=== PATIENT | male | born 1995 ===

== ENCOUNTER 2017-08-05 19:47 | Emergency (ER) | payer OTHER ==
[~2017-08-05] VITALS: Ht 180.3 cm; Wt 120.4 kg
[2017-08-05 19:50] VITALS: TEMP 37.2; Ht 180.3 cm; Wt 120.4 kg
[2017-08-05] MEDS ORDERED: LIDOCAINE/EPINEPHRINE 1% 20 ML VIAL INFIL ONE (20:30)
[2017-08-05] MEDS ORDERED: CEPHALEXIN MONOHYDRATE 250 MG CAP PO ONE (22:30)
[2017-08-05] MEDS ORDERED: SEPTRA DS HOME PACK 1 EA VIAL PO ONE (22:30)
[2017-08-05] MEDS ORDERED: CEPHALEXIN 500MG HOME PACK 1 EA BTL PO ONE (22:30)
[2017-08-05] MEDS ORDERED: SULFAMETHOXAZOLE/TRIMETHOPRIM DS 800/160MG TAB PO STA (22:30)
[2017-08-05] MEDS ORDERED: SULF800T23 PO (22:33)
[2017-08-05] MEDS ORDERED: CEPH500C PO (22:33)
--- NOTE | 2017-08-05 22:35 | EMERGENCY ROOM VISIT NOTE ---
ED Visit Note First contact with patient: 19:56 CHIEF COMPLAINT: Infection on the right buttock HISTORY OF PRESENT ILLNESS: This 22-year-old male patient presents to the emergency department with complaint of swollen bump on his right buttock that started 3 days ago. It is slowly getting larger, more painful and tender. No fever, chills, or loss of appetite. There has been no drainage from the area. There was no known injury to the area preceding the infection, the patient states that he first noticed the area after spending some time sitting in the grass, he is unsure if he had an insect bite. He denies any history of previous abscess or cellulitis infections. REVIEW OF SYSTEMS: The patient is not diabetic, and has no history of subcutaneous abscesses. Denies a history of heart disease or being unusually prone to infections. No fever, chills, vomiting, or diarrhea. PMH: The patient is healthy; there is no significant medical or surgical history. SOCIAL HISTORY: Patient lives at home. He is a [employer] student. He denies tobacco, alcohol, recreational drug use. PHYSICAL EXAM: Vital Signs: Reviewed Nurse's notes. Patient is alert, oriented 4, in no acute distress and nontoxic appearing. He appears well-hydrated. There is an indurated area in the gluteal fold along the right medial buttock. Does not track into the gluteal crease or toward the anus. The indurated area measures about 15 cm in diameter. It is fluctuant but there is no pointing or drainage. There is a zone of inflammation around it but no lymphangitis. Heart sounds normal, normal peripheral perfusion, normal pulses all fracture least. Lung sounds clear to auscultation. Abdomen is soft, nontender, nondistended, normal bowel sounds. EMERGENCY DEPARTMENT COURSE: I examined the patient. Differential diagnosis includes abscess, cellulitis, perianal abscess, ingrown hair, insect bite. Bedside ultrasound was used to evaluate the indurated area, a large amount of fluid collection was noted with the ultrasound. I explained the risks and benefits of the procedure to the patient, he gave verbal consent. Using saline and Betadine cleansing, lidocaine anesthesia, and sterile technique, the abscess cavity was incised with a number 11 scalpel blade. Large amount of purulent material drained and more was expressed after probing the wound tracts with needle drivers. Wound culture was collected and sent to the lab. The abscess cavity was then irrigated copiously with sterile saline, light packing with Betadine and iodoform guaze, and an occlusive dressing was applied. The patient was provided with prescriptions for Keflex and Bactrim, first dose given in the ED. Patient was also provided with a take home pack of [place] for pain relief. He was provided with a school note. Patient was instructed to follow-up with [facility] in 1-2 days for reevaluation of his abscess and removal of packing, and directed to return to the emergency department for worsening symptoms, or if he is unable to be seen at [facility]. The patient verbalized understanding of all discharge instructions and plan. Patient was discharged home in stable condition and ambulatory. Current/Historical Medications Scheduled Cephalexin Monohydrate (Keflex), 500 MG PO QID Sulfa/Trimethoprim (Bactrim Ds 800MG/160MG), 1 TAB PO BID Scheduled PRN Hydrocodone/Acetaminophen 5MG/325MG ([place] 5MG/325MG), 1-2 TABLET PO Q6H PRN for Pain Allergies Coded Allergies: No Known Allergies (Unverified , 08/05/17) Vital Signs Date Time Temp Pulse Resp B/P (MAP) Pulse Ox O2 Delivery O2 Flow Rate FiO2 08/05/17 23:03 88 20 138/78 99 08/05/17 19:50 37.2 86 18 136/82 100 Room Air Medications Administered Medications (Trade) Dose Ordered Sig/Lukasz Route Start Time Stop Time Status Last Admin Dose Admin Cephalexin Monohydrate (Keflex Cap) 500 mg NOW ONCE PO 08/05/17 22:30 08/05/17 22:31 DC 08/05/17 22:41 500 MG Cephalexin Monohydrate (Keflex 500MG Home Pack) 1 homepack NOW ONCE PO 08/05/17 22:30 08/05/17 22:31 DC 08/05/17 22:53 1 HOMEPACK Trimethoprim/ Sulfamethoxazole (Septra Ds 800/ 160MG Tab) 1 tab NOW STAT PO 08/05/17 22:30 08/05/17 22:31 DC 08/05/17 22:41 1 TAB Trimethoprim/ Sulfamethoxazole (Sulfameth/ Trimeth Ds 800/ 160MG Home Pack) 1 homepack UD ONCE PO 08/05/17 22:30 08/05/17 22:31 DC 08/05/17 22:53 1 HOMEPACK Acetaminophen/ Hydrocodone Bitart ([place] 5/325mg Home Pack) 1 homepack UD ONCE PO 08/05/17 23:00 08/05/17 23:01 DC 08/05/17 22:54 1 HOMEPACK Departure Information Impression Primary Impression: Abscess of buttock, right Dispostion Home / Self-Care Condition GOOD Prescriptions Hydrocodone/Acetaminophen 5MG/325MG ([place] 5MG/325MG) Tab 1-2 TABLET PO Q6H Y for Pain, #15 TAB For Initial Treatment Prov: Ning Loya CRNP 08/05/17 Sulfa/Trimethoprim (Bactrim Ds 800MG/160MG) Tab 1 TAB PO BID for 9 Days, #18 TAB Prov: Ning Loya CRNP 08/05/17 Cephalexin Monohydrate (Keflex) 500 Mg Cap 500 MG PO QID for 9 Days, #36 CAP Prov: Ning Loya CRNP 08/05/17 Referrals No Doctor, Assigned (PCP) Pranav Santos, DO Patient Instructions ED Abscess IandD, [facility] Additional Instructions Change the dressing if it becomes soiled or blood-stained. Otherwise keep the dressing clean and dry. You were prescribed Keflex and Bactrim to be taken for 10 days. This is an antibiotic. All antibiotics have the potential to cause diarrhea. Stop this medication and contact a medical provider if you were to develop any significant adverse side effects including: wheezing, shortness of breath, passing out, vomiting, or a diffuse rash. Always take antibiotics as directed and COMPLETE the ENTIRE course regardless of the improvement of your symptoms. You need to follow up with your doctor at [facility] in 2 days to have the wound rechecked and the packing material removed. Please return to the emergency department for any worsening symptoms, including severe worsening pain that does not respond to medication, increased redness or swelling of the wound, large amounts of pus drainage from the wound, fevers/ chills/feeling ill, or any other concerns. You should see a general surgeon if an abscess re-occurs in the same area in the future for consideration of excision of the cyst. School Instructions Return To School: 3 days
[2017-08-05] MEDS ORDERED: HYDR-5688 PO (22:48)
[2017-08-05] MEDS ORDERED: NORCO 5/325MG HOME PACK PO ONE (23:00)
[2017-08-05 23:03] VITALS: BP 138/78; PULSE 88; O2SAT 99
--- NOTE | 2017-08-09 15:14 | Pharmacy Progress Note ---
ED Pharmacist Culture FollowUp Date of Service: Aug 09, 2017. Discussed with Dr. Montez. If patient was improving, then no need to alter antibiotics, if patient was getting worse then would alter antibiotics to augmentin. I called the patient and he reported going to [facility] to get his wound repacked. He reported feeling better, thus no change in antibiotics warranted at this time. I urged him to call us or return to [facility] if the wound gets worse again or if he feels worse again. He acknowledged understanding.
== END 2017-08-05 23:06 | disposition home or self-care (01) ==
LOC: C.EDB 19:49 → C.EDD 23:06
DX: L02.31 Cutaneous abscess of buttock (principal)